=== PATIENT | male | born 1945 | race Caucasian/White ===

== ENCOUNTER → 2017-07-15 | Outpatient (CLI) | payer OTHER ==
[~2017-07-15] MED LIST: AMBIEN10 MG PO; ASPIR 8181 MG PO; ASPIRIN81 MG PO; AVODART 0.5 MG0.5 MG PO; AVODART0.5 MG PO; FLOMAX 0.4 MG0.4 MG PO; IPRAT-ALBUT 0.5-3 ML INH; LEVAQUIN750 MG PO; NEURONTIN 300300 MG PO; PROTONIX40 MG PO; PROZAC20 MG PO; RESTORIL15 MG PO; SIMVASTATIN10 MG PO; SPIRIVA18 MCG INH; SYMBICORT 80-41 INHA INH; TEMAZEPAM15 MG PO; TRAZODONE HCL50 MG PO; TYLENOL 325MG325 MG PO; VALIUM 5 MG TAB5 MG PO; VALIUM10 MG PO; VITAMIN B-1000 MCG/M IM; VYTORIN 10-101 EACH PO; ZETIA10 MG PO; ZMAX2 GM/60 ML PO
== END ==
LOC: NM 09:00
DX: R07.89 Other chest pain (principal); R53.83 Other fatigue; R06.00 Dyspnea, unspecified; Z98.61 Coronary angioplasty status; R94.39 Abnormal result of other cardiovascular function study
CPT/HCPCS: 78452; 93017; A9502; J2785